=== PATIENT | male | born 1955 | race Caucasian/White ===

== ENCOUNTER 2024-10-16 09:27 | Outpatient (CLI) | payer BC | END 2024-10-16 09:28 | disposition home or self-care (01) | LOC: CSHWCC 09:27 | PROVIDERS: ATTEND Nurse Practitioner Family | DX: I87.303 Chronic venous hypertension (idiopathic) without complications of bilateral lower extremity (principal); L97.212 Non-pressure chronic ulcer of right calf with fat layer exposed; L97.222 Non-pressure chronic ulcer of left calf with fat layer exposed; L97.312 Non-pressure chronic ulcer of right ankle with fat layer exposed; L97.322 Non-pressure chronic ulcer of left ankle with fat layer exposed; L97.522 Non-pressure chronic ulcer of other part of left foot with fat layer exposed; I25.10 Atherosclerotic heart disease of native coronary artery without angina pectoris; I89.0 Lymphedema, not elsewhere classified | CPT/HCPCS: 11042; 11045; 99213; G0463 ==

== ENCOUNTER 2024-10-24 11:30 | Outpatient (CLI) | payer BC | END 2024-10-24 11:31 | disposition home or self-care (01) | LOC: CSHWCC 11:30 | PROVIDERS: ATTEND Nurse Practitioner Family | DX: I87.303 Chronic venous hypertension (idiopathic) without complications of bilateral lower extremity (principal); E11.622 Type 2 diabetes mellitus with other skin ulcer; L97.212 Non-pressure chronic ulcer of right calf with fat layer exposed; L97.222 Non-pressure chronic ulcer of left calf with fat layer exposed; L97.312 Non-pressure chronic ulcer of right ankle with fat layer exposed; L97.322 Non-pressure chronic ulcer of left ankle with fat layer exposed; E11.621 Type 2 diabetes mellitus with foot ulcer; L97.522 Non-pressure chronic ulcer of other part of left foot with fat layer exposed; I25.10 Atherosclerotic heart disease of native coronary artery without angina pectoris; I89.0 Lymphedema, not elsewhere classified | CPT/HCPCS: 11042; 11045; 99212; G0463 ==

== ENCOUNTER 2024-10-28 15:13 | Outpatient (CLI) | payer BC | END 2024-10-28 15:14 | disposition home or self-care (01) | LOC: CSHWCC 15:13 | PROVIDERS: ATTEND Nurse Practitioner Family | DX: I87.303 Chronic venous hypertension (idiopathic) without complications of bilateral lower extremity (principal); E11.622 Type 2 diabetes mellitus with other skin ulcer; L97.212 Non-pressure chronic ulcer of right calf with fat layer exposed; L97.222 Non-pressure chronic ulcer of left calf with fat layer exposed; L97.312 Non-pressure chronic ulcer of right ankle with fat layer exposed; L97.322 Non-pressure chronic ulcer of left ankle with fat layer exposed; L97.522 Non-pressure chronic ulcer of other part of left foot with fat layer exposed; I25.10 Atherosclerotic heart disease of native coronary artery without angina pectoris; I89.0 Lymphedema, not elsewhere classified | CPT/HCPCS: 11042; 11045 ==

== ENCOUNTER 2024-10-31 11:55 | Outpatient (CLI) | payer BC | END 2024-10-31 11:56 | disposition home or self-care (01) | LOC: CSHWCC 11:55 | PROVIDERS: ATTEND Family Medicine | DX: I87.303 Chronic venous hypertension (idiopathic) without complications of bilateral lower extremity (principal); L97.212 Non-pressure chronic ulcer of right calf with fat layer exposed; L97.222 Non-pressure chronic ulcer of left calf with fat layer exposed; L97.312 Non-pressure chronic ulcer of right ankle with fat layer exposed; L97.322 Non-pressure chronic ulcer of left ankle with fat layer exposed; E11.622 Type 2 diabetes mellitus with other skin ulcer; I25.10 Atherosclerotic heart disease of native coronary artery without angina pectoris; I89.0 Lymphedema, not elsewhere classified | CPT/HCPCS: 29581 ==

== ENCOUNTER 2024-11-03 11:00 | Outpatient (CLI) | payer BC | END 2024-11-03 11:01 | disposition home or self-care (01) | LOC: CSHWCC 11:00 | PROVIDERS: ATTEND Family Medicine | DX: E11.622 Type 2 diabetes mellitus with other skin ulcer (principal); I87.303 Chronic venous hypertension (idiopathic) without complications of bilateral lower extremity; L97.212 Non-pressure chronic ulcer of right calf with fat layer exposed; L97.222 Non-pressure chronic ulcer of left calf with fat layer exposed; L97.312 Non-pressure chronic ulcer of right ankle with fat layer exposed; L97.322 Non-pressure chronic ulcer of left ankle with fat layer exposed; L97.522 Non-pressure chronic ulcer of other part of left foot with fat layer exposed; I89.0 Lymphedema, not elsewhere classified; I25.10 Atherosclerotic heart disease of native coronary artery without angina pectoris | CPT/HCPCS: 11042; 11045 ==

== ENCOUNTER 2024-11-06 13:32 | Outpatient (CLI) | payer BC | END 2024-11-06 13:33 | disposition home or self-care (01) | LOC: CSHWCC 13:32 | PROVIDERS: ATTEND Nurse Practitioner Family | DX: E11.622 Type 2 diabetes mellitus with other skin ulcer (principal); I87.303 Chronic venous hypertension (idiopathic) without complications of bilateral lower extremity; L97.212 Non-pressure chronic ulcer of right calf with fat layer exposed; L97.222 Non-pressure chronic ulcer of left calf with fat layer exposed; L97.312 Non-pressure chronic ulcer of right ankle with fat layer exposed; L97.322 Non-pressure chronic ulcer of left ankle with fat layer exposed; L97.522 Non-pressure chronic ulcer of other part of left foot with fat layer exposed; I25.10 Atherosclerotic heart disease of native coronary artery without angina pectoris; I89.0 Lymphedema, not elsewhere classified | CPT/HCPCS: 99212; G0463 ==

== ENCOUNTER 2024-11-10 13:31 | Outpatient (CLI) | payer BC | END 2024-11-10 13:32 | disposition home or self-care (01) | LOC: CSHWCC 13:31 | PROVIDERS: ATTEND Nurse Practitioner Family | DX: I87.303 Chronic venous hypertension (idiopathic) without complications of bilateral lower extremity (principal); E11.622 Type 2 diabetes mellitus with other skin ulcer; L97.212 Non-pressure chronic ulcer of right calf with fat layer exposed; L97.222 Non-pressure chronic ulcer of left calf with fat layer exposed; L97.312 Non-pressure chronic ulcer of right ankle with fat layer exposed; L97.322 Non-pressure chronic ulcer of left ankle with fat layer exposed; E11.621 Type 2 diabetes mellitus with foot ulcer; L97.522 Non-pressure chronic ulcer of other part of left foot with fat layer exposed; I25.10 Atherosclerotic heart disease of native coronary artery without angina pectoris; I89.0 Lymphedema, not elsewhere classified | CPT/HCPCS: 11042; 11045; 99213; G0463 ==

== ENCOUNTER 2024-11-13 13:37 | Outpatient (CLI) | payer BC | END 2024-11-13 13:38 | disposition home or self-care (01) | LOC: CSHWCC 13:37 | PROVIDERS: ATTEND Nurse Practitioner Family | DX: E11.622 Type 2 diabetes mellitus with other skin ulcer (principal); I87.303 Chronic venous hypertension (idiopathic) without complications of bilateral lower extremity; L97.212 Non-pressure chronic ulcer of right calf with fat layer exposed; L97.222 Non-pressure chronic ulcer of left calf with fat layer exposed; L97.312 Non-pressure chronic ulcer of right ankle with fat layer exposed; L97.522 Non-pressure chronic ulcer of other part of left foot with fat layer exposed; L97.322 Non-pressure chronic ulcer of left ankle with fat layer exposed; I25.10 Atherosclerotic heart disease of native coronary artery without angina pectoris; I89.0 Lymphedema, not elsewhere classified | CPT/HCPCS: 29581 ==

== ENCOUNTER 2024-11-17 12:02 | Outpatient (CLI) | payer BC | END 2024-11-17 12:03 | disposition home or self-care (01) | LOC: CSHWCC 12:02 | PROVIDERS: ATTEND Nurse Practitioner Family | DX: I87.303 Chronic venous hypertension (idiopathic) without complications of bilateral lower extremity (principal); E11.622 Type 2 diabetes mellitus with other skin ulcer; L97.212 Non-pressure chronic ulcer of right calf with fat layer exposed; L97.222 Non-pressure chronic ulcer of left calf with fat layer exposed; L97.312 Non-pressure chronic ulcer of right ankle with fat layer exposed; L97.322 Non-pressure chronic ulcer of left ankle with fat layer exposed; E11.621 Type 2 diabetes mellitus with foot ulcer; L97.522 Non-pressure chronic ulcer of other part of left foot with fat layer exposed; I25.10 Atherosclerotic heart disease of native coronary artery without angina pectoris; I89.0 Lymphedema, not elsewhere classified | CPT/HCPCS: 11042; 11045 ==

== ENCOUNTER 2024-11-20 15:38 | Outpatient (CLI) | payer BC | END 2024-11-20 15:39 | disposition home or self-care (01) | LOC: CSHWCC 15:38 | PROVIDERS: ATTEND Nurse Practitioner Family | DX: I87.303 Chronic venous hypertension (idiopathic) without complications of bilateral lower extremity (principal); E11.622 Type 2 diabetes mellitus with other skin ulcer; L97.212 Non-pressure chronic ulcer of right calf with fat layer exposed; L97.222 Non-pressure chronic ulcer of left calf with fat layer exposed; L97.312 Non-pressure chronic ulcer of right ankle with fat layer exposed; L97.322 Non-pressure chronic ulcer of left ankle with fat layer exposed; E11.621 Type 2 diabetes mellitus with foot ulcer; L97.522 Non-pressure chronic ulcer of other part of left foot with fat layer exposed; I25.10 Atherosclerotic heart disease of native coronary artery without angina pectoris; I89.0 Lymphedema, not elsewhere classified | CPT/HCPCS: 29581 ==

== ENCOUNTER 2024-11-24 09:34 | Outpatient (CLI) | payer BC | END 2024-11-24 09:35 | disposition home or self-care (01) | LOC: CSHWCC 09:34 | PROVIDERS: ATTEND Nurse Practitioner Family | DX: I87.303 Chronic venous hypertension (idiopathic) without complications of bilateral lower extremity (principal); E11.622 Type 2 diabetes mellitus with other skin ulcer; L97.212 Non-pressure chronic ulcer of right calf with fat layer exposed; L97.222 Non-pressure chronic ulcer of left calf with fat layer exposed; L97.312 Non-pressure chronic ulcer of right ankle with fat layer exposed; L97.322 Non-pressure chronic ulcer of left ankle with fat layer exposed; E11.621 Type 2 diabetes mellitus with foot ulcer; L97.522 Non-pressure chronic ulcer of other part of left foot with fat layer exposed; I89.0 Lymphedema, not elsewhere classified; I25.10 Atherosclerotic heart disease of native coronary artery without angina pectoris; L08.9 Local infection of the skin and subcutaneous tissue, unspecified | CPT/HCPCS: 11042; 11045; 87070; 87077; 87186; 87205; 99213; G0463 ==

== ENCOUNTER 2024-11-27 15:19 | Outpatient (CLI) | payer BC | END 2024-11-27 15:20 | disposition home or self-care (01) | LOC: CSHWCC 15:19 | PROVIDERS: ATTEND Nurse Practitioner Family | DX: I87.303 Chronic venous hypertension (idiopathic) without complications of bilateral lower extremity (principal); L97.212 Non-pressure chronic ulcer of right calf with fat layer exposed; L97.222 Non-pressure chronic ulcer of left calf with fat layer exposed; L97.312 Non-pressure chronic ulcer of right ankle with fat layer exposed; L97.322 Non-pressure chronic ulcer of left ankle with fat layer exposed; E11.621 Type 2 diabetes mellitus with foot ulcer; L97.522 Non-pressure chronic ulcer of other part of left foot with fat layer exposed; I25.10 Atherosclerotic heart disease of native coronary artery without angina pectoris; L08.9 Local infection of the skin and subcutaneous tissue, unspecified; I89.0 Lymphedema, not elsewhere classified | CPT/HCPCS: 29581 ==

== ENCOUNTER 2024-12-01 11:34 | Outpatient (CLI) | payer BC | END 2024-12-01 11:35 | disposition home or self-care (01) | LOC: CSHWCC 11:34 | PROVIDERS: ATTEND Nurse Practitioner Family | DX: I87.303 Chronic venous hypertension (idiopathic) without complications of bilateral lower extremity (principal); E11.622 Type 2 diabetes mellitus with other skin ulcer; L97.212 Non-pressure chronic ulcer of right calf with fat layer exposed; L97.222 Non-pressure chronic ulcer of left calf with fat layer exposed; L97.312 Non-pressure chronic ulcer of right ankle with fat layer exposed; L97.322 Non-pressure chronic ulcer of left ankle with fat layer exposed; E11.621 Type 2 diabetes mellitus with foot ulcer; L97.522 Non-pressure chronic ulcer of other part of left foot with fat layer exposed; I89.0 Lymphedema, not elsewhere classified; I25.10 Atherosclerotic heart disease of native coronary artery without angina pectoris; L08.9 Local infection of the skin and subcutaneous tissue, unspecified | CPT/HCPCS: 99215; G0463 ==

== ENCOUNTER 2024-12-17 15:07 | Outpatient (CLI) | payer BC | END 2024-12-17 15:08 | disposition home or self-care (01) | LOC: CSHWCC 15:07 | PROVIDERS: ATTEND Nurse Practitioner Family | DX: I87.303 Chronic venous hypertension (idiopathic) without complications of bilateral lower extremity (principal); E11.622 Type 2 diabetes mellitus with other skin ulcer; L97.212 Non-pressure chronic ulcer of right calf with fat layer exposed; L97.222 Non-pressure chronic ulcer of left calf with fat layer exposed; L97.312 Non-pressure chronic ulcer of right ankle with fat layer exposed; L97.322 Non-pressure chronic ulcer of left ankle with fat layer exposed; E11.621 Type 2 diabetes mellitus with foot ulcer; L97.522 Non-pressure chronic ulcer of other part of left foot with fat layer exposed; I25.10 Atherosclerotic heart disease of native coronary artery without angina pectoris; L08.9 Local infection of the skin and subcutaneous tissue, unspecified; I89.0 Lymphedema, not elsewhere classified | CPT/HCPCS: 11042; 11045 ==

== ENCOUNTER 2025-01-14 16:26 | Outpatient (CLI) | payer BC | END 2025-01-14 16:27 | disposition home or self-care (01) | LOC: CSHWCC 16:26 | PROVIDERS: ATTEND Nurse Practitioner Family | DX: I87.303 Chronic venous hypertension (idiopathic) without complications of bilateral lower extremity (principal); E11.622 Type 2 diabetes mellitus with other skin ulcer; L97.222 Non-pressure chronic ulcer of left calf with fat layer exposed; L97.322 Non-pressure chronic ulcer of left ankle with fat layer exposed; E11.621 Type 2 diabetes mellitus with foot ulcer; L97.522 Non-pressure chronic ulcer of other part of left foot with fat layer exposed; I25.10 Atherosclerotic heart disease of native coronary artery without angina pectoris; I89.0 Lymphedema, not elsewhere classified | CPT/HCPCS: 11042; 11045 ==

== ENCOUNTER 2025-06-17 13:12 | Outpatient (CLI) | payer MEDICARE | END 2025-06-17 13:13 | disposition home or self-care (01) | LOC: CSHWCC 13:12 | PROVIDERS: ATTEND Nurse Practitioner Family | DX: I87.303 Chronic venous hypertension (idiopathic) without complications of bilateral lower extremity (principal); E11.622 Type 2 diabetes mellitus with other skin ulcer; L97.222 Non-pressure chronic ulcer of left calf with fat layer exposed; L97.322 Non-pressure chronic ulcer of left ankle with fat layer exposed; E11.621 Type 2 diabetes mellitus with foot ulcer; L97.522 Non-pressure chronic ulcer of other part of left foot with fat layer exposed; L97.919 Non-pressure chronic ulcer of unspecified part of right lower leg with unspecified severity; I89.0 Lymphedema, not elsewhere classified; I25.10 Atherosclerotic heart disease of native coronary artery without angina pectoris; L08.9 Local infection of the skin and subcutaneous tissue, unspecified | CPT/HCPCS: 11042; 11045; G0463; 99212 ==

== ENCOUNTER 2025-06-24 13:14 | Outpatient (CLI) | payer MEDICARE | END 2025-06-24 13:15 | disposition home or self-care (01) | LOC: CSHWCC 13:14 | PROVIDERS: ATTEND Nurse Practitioner Family | DX: I87.303 Chronic venous hypertension (idiopathic) without complications of bilateral lower extremity (principal); E11.622 Type 2 diabetes mellitus with other skin ulcer; L97.222 Non-pressure chronic ulcer of left calf with fat layer exposed; L97.322 Non-pressure chronic ulcer of left ankle with fat layer exposed; E11.621 Type 2 diabetes mellitus with foot ulcer; L97.522 Non-pressure chronic ulcer of other part of left foot with fat layer exposed; I25.10 Atherosclerotic heart disease of native coronary artery without angina pectoris; L08.9 Local infection of the skin and subcutaneous tissue, unspecified; I89.0 Lymphedema, not elsewhere classified | CPT/HCPCS: 11042; 11045; G0463; 99214 ==

== ENCOUNTER 2025-07-01 14:07 | Outpatient (CLI) | payer MEDICARE | END 2025-07-01 14:08 | disposition home or self-care (01) | LOC: CSHWCC 14:07 | PROVIDERS: ATTEND Nurse Practitioner Family | DX: I87.303 Chronic venous hypertension (idiopathic) without complications of bilateral lower extremity (principal); E11.622 Type 2 diabetes mellitus with other skin ulcer; L97.222 Non-pressure chronic ulcer of left calf with fat layer exposed; L97.322 Non-pressure chronic ulcer of left ankle with fat layer exposed; E11.621 Type 2 diabetes mellitus with foot ulcer; L97.522 Non-pressure chronic ulcer of other part of left foot with fat layer exposed; L97.919 Non-pressure chronic ulcer of unspecified part of right lower leg with unspecified severity; I25.10 Atherosclerotic heart disease of native coronary artery without angina pectoris; L08.9 Local infection of the skin and subcutaneous tissue, unspecified; I89.0 Lymphedema, not elsewhere classified | CPT/HCPCS: 11042; 11045; 99212; G0463 ==

== ENCOUNTER 2025-07-08 15:39 | Outpatient (CLI) | payer MEDICARE | END 2025-07-08 15:40 | disposition home or self-care (01) | LOC: CSHWCC 15:39 | PROVIDERS: ATTEND Nurse Practitioner Family | DX: I87.303 Chronic venous hypertension (idiopathic) without complications of bilateral lower extremity (principal); E11.622 Type 2 diabetes mellitus with other skin ulcer; L97.222 Non-pressure chronic ulcer of left calf with fat layer exposed; L97.322 Non-pressure chronic ulcer of left ankle with fat layer exposed; E11.621 Type 2 diabetes mellitus with foot ulcer; L97.522 Non-pressure chronic ulcer of other part of left foot with fat layer exposed; L97.919 Non-pressure chronic ulcer of unspecified part of right lower leg with unspecified severity; I25.10 Atherosclerotic heart disease of native coronary artery without angina pectoris; L08.9 Local infection of the skin and subcutaneous tissue, unspecified; I89.0 Lymphedema, not elsewhere classified | CPT/HCPCS: 11042; 11045; G0463; 99212 ==